=== PATIENT | female | born 1940 ===

== ENCOUNTER 2022-01-11 06:00 | Day surgery (SDC) | payer OTHER ==
[~2022-01-11 06:00] MED LIST: ATACAND16 MG PO; CARDURA XL4 MG PO; FAMOTIDINE40 MG PO; FOLIC ACID20 MG PO; HYDROCHLOROTHIA25 MG PO; LIPOCHOL PLUS0.5 MG PO; PROTONIX40 MG PO; SIMVASTATIN5 MG PO; VERELAN180 MG PO
== END 2022-01-11 13:35 | disposition home or self-care (01) ==
LOC: CIR.AMB 06:00
PROVIDERS: ATTEND Orthopaedic Surgery Hand Surgery
DX: S63.509A Unspecified sprain of unspecified wrist, initial encounter (principal); Z88.0 Allergy status to penicillin; I10 Essential (primary) hypertension; E78.5 Hyperlipidemia, unspecified